=== PATIENT | male | born 1940 | race Caucasian/White ===

== ENCOUNTER → 2018-09-24 | Outpatient (CLI) | payer MEDICARE, BC ==
[~2018-09-24] MED LIST: AMIT25TA PO; ASPI-612 PO; BUSP10TA PO; CYAN200014 PO; LANS30CA PO; PSYL0.526 PO; TAMS0.4C2 PO
--- NOTE | 2018-09-24 16:58 | RAD ---
MRI Brain without contrast History: Dizziness, blurred vision for 8 months, hit head on car door, headaches Technique: Multiplanar, multisequential noncontrast MR imaging was performed of the brain. Contrast: None Comparison: None Findings: There is some motion degradation. There is no evidence of recent infarct or cytotoxic edema. Ventricular size is within normal limits. There is very mild prominence of the supratentorial subarachnoid spaces which may be due to very mild involutional change.There is no significant midline shift, intraaxial mass effect, or focal abnormal extra-axial fluid collection. There is minimal T2 and FLAIR hyperintense signal abnormality of the supratentorial white matter bilaterally. There is no significant hemosiderin deposition of the brain parenchyma. There is preservation of the major intracranial flow-voids at the skull base. The mastoid air cells are aerated. The cerebellar tonsils are normal in location. There is no significant abnormality of the pineal gland or pituitary gland. There is moderate to severe right maxillary sinus mucosal thickening, minimal bilateral ethmoid air cell mucosal thickening. There is a small anterior left maxillary sinus mucous retention cyst. There is preserved marrow signal of the clivus. There is degenerative disc disease and spondylosis of visualized cervical spine, at least mild if not moderate spinal stenosis of visualized cervical spine. Impression: 1. There is no evidence of recent infarct or intracranial mass effect. Nonspecific minimal T2 and FLAIR hyperintense signal of the supratentorial parenchyma may be due to chronic microvascular ischemic disease. There is very mild supratentorial involutional change. 2. There is moderate to severe right maxillary sinus mucosal thickening. 3. There is degenerative disc disease and spondylosis of visualized cervical spine, at least mild if not moderate spinal stenosis of visualized cervical spine. Electronically signed by: Bo Vang MD (09/24/2018 4:55 PM) [facility]
== END | disposition home or self-care (01) ==
LOC: MRI 15:33
PROVIDERS: ATTEND Internal Medicine
DX: G44.221 Chronic tension-type headache, intractable (principal); M50.30 Other cervical disc degeneration, unspecified cervical region; M47.892 Other spondylosis, cervical region
CPT/HCPCS: 70551

== ENCOUNTER → 2019-05-07 | Outpatient (CLI) | payer MEDICARE, BC ==
[~2019-05-07] MED LIST changes: +REGADENOSON 0.4 MG/5 ML DISP.SYRIN. IV ONE
--- NOTE | 2019-05-07 09:06 | CARD ---
MR#: [id number] Date of Study: 05/07/2019 Ordering Physician: MAURIZIO RODRIGUEZ, Referring Physician: MAURIZIO RODRIGUEZ, Tech: Sun Sherwood RDCS APPROVED REPORT EXAM: Two-dimensional and M-mode echocardiogram with Doppler and color Doppler. Other Information Quality : Good INDICATION Murmur 2D DIMENSIONS RVDd2.0 (2.9-3.5cm)Left Atrium(2D)3.3 (1.6-4.0cm) IVSd0.7 (0.7-1.1cm)Aortic Root(2D)3.1 (2.0-3.7cm) LVDd4.6 (3.9-5.9cm)LVOT Diameter2.2 (1.8-2.4cm) PWd0.8 (0.7-1.1cm)LVDs3.2 (2.5-4.0cm) FS (%) 30.0 %SV56.3 ml LVEF(%)55.0 (>50%) Aortic Valve AoV Peak Jose C.169.3cm/sAoV VTI40.0cm AO Peak GR.11.5mmHgLVOT Peak Jose C.85.2cm/s AO Mean GR.7mmHgAVA (VMAX)1.85cm2 GRACY (VTI)1.80cm2 Mitral Valve MV E Slnrlpgh38.0cm/sMV DECEL QMRW519ge MV A Mzlpbtbp485.4cm/sE/A Ratio0.8 Tricuspid Valve TR P. Ujexqrjc299pi/sRAP QPSOQMYF5vsIb TR Peak Gr.04qbVpGDGB42ixRg Pulmonary Vein S1 Icuxntsd03.9cm/sD2 Mukjhrwi35.8cm/s LEFT VENTRICLE The left ventricle is normal size. There is normal left ventricular wall thickness. Left ventricle sy stolic function is normal. The Ejection Fraction is 55%. There is normal LV segmental wall motion. Tr ansmitral Doppler flow pattern is Grade I-abnormal relaxation pattern. RIGHT VENTRICLE The right ventricle is normal size. The right ventricular systolic function is normal. ATRIA The left atrium size is normal. The right atrium size is normal. The interatrial septum is intact wit h no evidence for an atrial septal defect or patent foramen ovale as noted on 2-D or Doppler imaging. AORTIC VALVE Functionally bicuspid aortic valve. Doppler and Color Flow revealed trace aortic regurgitation. There is no significant aortic valvular stenosis. MITRAL VALVE The mitral valve is calcified but opens well. The anterior mitral valve leaflet is redundant without clear evidence of mitral valve prolapse. There is no mitral valve stenosis. Doppler and Color-flow re vealed trace mitral regurgitation. TRICUSPID VALVE The tricuspid valve is normal in structure and function. Doppler and Color Flow revealed trace tricus pid regurgitation. The PA pressure was estimated at 21 mmHg. There is no tricuspid valve stenosis. PULMONIC VALVE The pulmonic valve is not well visualized. Doppler and Color Flow revealed no pulmonic valvular regur gitation. There is no pulmonic valvular stenosis. GREAT VESSELS The aortic root is normal in size. The ascending aorta is mildly dilated at 3.6 cm. The IVC is normal in size and collapses >50% with inspiration. PERICARDIAL EFFUSION There is no evidence of significant pericardial effusion. Critical Notification Critical Value: No <Conclusion> Left ventricle systolic function is normal. The Ejection Fraction is 55%. There is normal LV segmental wall motion. Transmitral Doppler flow pattern is Grade I-abnormal relaxation pattern. Functionally bicuspid aortic valve without any stenosis and trace aortic regurgitation. Trace mitral regurgitation. Trace tricuspid regurgitation. The PA pressure was estimated at 21 mmHg. There is no evidence of significant pericardial effusion. Signed by : Felipe Cody, Electronically Approved : 05/07/2019 09:06:21
--- NOTE | 2019-05-07 11:51 | RAD ---
MR#: [id number] Date of Study: 05/07/2019 Ordering Physician: MAURIZIO RODRIGUEZ, Referring Physician: RAFAEL SALAS Tech: RT Emil (R) (N) APPROVED REPORT Test Type: Pharmacological Stress Nurse/Tech: Merlyn Molina RN Test Indications: CP Cardiac History: No known cardiac, borderline DB (no tx), stroke (unknown time) Medications: See Electronic Medical Record Medical History: See Electronic Medical Record Resting ECG: PVC, ST elevation on lead I, aVL, V2, V5, V6, Resting Heart Rate: 62 bpm Resting Blood Pressure: 129/62mmHg Pretest Chest Pain: NoneNo chest pain Nurse/Tech Notes S1,S2, Clear LS. Unstable gait Consent: The procedure was explained to the patient in lay terms. Informed consent was witnessed. Segun eout was entered into [employer]. History and Stress Test performed by Merlyn Molina RN Pharm. Details Pharmacologic stress testing was performed using 0.4mg per 5ml of regadenoson given intravenously ove r 7-10 seconds. Stress Symptoms Dyspnea, Flushing, Nausea(late stage) Nonanginal chest pain occurred (Severity , 1 min duration). POST EXERCISE Reason for Termination: Infusion complete Max HR: 103 bpm Max Blood Pressure: 127/63mmHg Chest Pain: Yes. chest tightness Angina index: 4 Arrhythmia: No. ST Change: No. INTERPRETATION Stress EKG Conclusion: Baseline EKG showed sinus rhythm. No ischemic changes at peak stress. No arr hythmias. Imaging Protocol IMAGE PROTOCOL: Rest Tc-99m/stress Tc-99m 1 day Rest: Stress: Viability: Radiopharm.Tc99m KulbaonxwCi10a Sestamibi Pnmp07cMn 32mCi Duration 13min. 13min. Img Date 05/07/2019 05/07/2019 Inj-Img Pkhs03ahy. 60min. Rest Admin Site:IV - Left ForearmAdministrator:RT Emil (R)(N) Stress Admin Site: IV - Left ForearmAdministrator: MIKE Higgins STRESS DATA End Diast. Vol.101.0mlLVEDV index BSA52.0ml End Syst. Vol.36.0mlLVESV index BSA18.0ml Myocardial Cjfj886.0gEject. Wqkhttnn81.0% Stress Scores Regional WT1.00Summed WT8.00 Regional WM0.00Summed WM7.00 Study quality was good. Left Ventricular size was Normal at Rest and Stress. Lung uptake was . Left Ventricular ejection fraction is 64%. The rest and stress images show normal perfusion, normal contraction and thickening. LV Perf. Quant 17 Seg. SSS1.00 17 Seg. SRS10.00 17 Seg. SDS0.00 Stress Defect Extent (% LAD)0.00Rest Defect Extent (% LAD)16.30Rev. Defect Extent (% LAD)0.00 Stress Defect Extent (% LCX) 0.00Rest Defect Extent (% LCX)22.50Rev. Defect Extent (% LCX)0.00 Stress Defect Extent (% RCA)0.00Rest Defect Extent (% RCA)15.60Rev. Defect Extent (% RCA)0.00 Stress Defect Extent (% CHIKA)0.00Rest Defect Extent (% CHIKA)16.70Rev. Defect Extent (% CHIKA)0.00 Conclusion 1. Regadenoson cardioisotope stress test did not show any evidence of ischemia or infarct. 2. Normal left ventricular systolic function with ejection fraction calculated at 64%. 3. Low risk for cardiac events. Signed by : Felipe Cody, Electronically Approved : 05/07/2019 11:51:11
== END ==
LOC: NM 06:46
PROVIDERS: ATTEND Internal Medicine Cardiovascular Disease
DX: I34.8 Other nonrheumatic mitral valve disorders (principal)
CPT/HCPCS: 78452; 93017; 93306; A9500; J2785

== ENCOUNTER → 2022-01-05 | Outpatient (CLI) | payer MEDICARE, BC ==
[2019-07-30 19:36] VITALS: BP 120/66
[~2022-01-05] MED LIST changes: -ASPI-612 PO; +ASPI-886 PO
[2022-01-05] MEDS: REGADENOSON 0.4 MG/5 ML DISP.SYRIN. IV ONE (08:30)
--- NOTE | 2022-01-05 15:03 | RAD ---
MR#: [id number] Date of Study: 01/05/2022 Ordering Physician: MAURIZIO VU, Referring Physician: RAFAEL SALAS Tech: MIKE Higgins APPROVED REPORT Test Type: Pharmacological Stress Nurse/Tech: Renea Snu R.N. Test Indications: CP Cardiac History: cad Medications: See Electronic Medical Record Medical History: See Electronic Medical Record Resting ECG: SR w/ 1st degree AV block, inverted T waves in leads AVL and V2, Resting Heart Rate: 83 bpm Resting Blood Pressure: 133/82mmHg Pretest Chest Pain: No chest pain Nurse/Tech Notes S1S2 w/ murmur, lungs CTA Consent: The procedure was explained to the patient in lay terms. Informed consent was witnessed. Segun eout was entered into [employer]. History and Stress Test performed by RT Toña (R) (N) Pharm. Details Pharmacologic stress testing was performed using 0.4mg per 5ml of regadenoson given intravenously ove r 7-10 seconds. Stress Symptoms SOA POST EXERCISE Reason for Termination: Infusion complete Max HR: 98 bpm Max Blood Pressure: 140/71mmHg Blood Pressure response to exercise: Normal blood pressure response during stress. Heart Rate response to exercise: wnl Chest Pain: No. Arrhythmia: Yes. had multiple pvc's noted INTERPRETATION Stress EKG Conclusion: The resting EKG shows a sinus rhythm with nonspecific ST-T wave changes. The stress EKG shows no significant changes from baseline. No EKG evidence of stress-induced ischemia. Imaging Protocol IMAGE PROTOCOL: Rest Tc-99m/stress Tc-99m 1 day Rest: Stress: Viability: Radiopharm.Tc99m MhokbimbhOo45m Sestamibi Cmbu74yRr 30mCi Duration 15min. 13min. Img Date 01/05/2022 01/05/2022 Inj-Img Jotz74sxz. 60min. Rest Admin Site:IV - Right AntecubitalAdministrator:RT Toña (R)(N) Stress Admin Site: IV - Right AntecubitalAdministrator: RT Toña (R)(N) STRESS DATA End Diast. Vol.90.0mlLVEDV index BSA47.0ml End Syst. Vol.36.0mlLVESV index BSA19.0ml Myocardial Ydwq074.0gEject. Rckiujiu62.0% Stress Scores Regional WT0.00Summed WT9.00 Regional WM0.00Summed WM4.00 LV Perfusion The stress images showed mild apical thinning. The rest images showed mild apical thinning. Nuclear imaging shows no reversible ischemia. Nuclear imaging shows fixed mild apical thinning most consistent with a technical artifact. Wall Motion Left ventricular systolic function is intact with an ejection fraction of 60%. LV Perf. Quant 17 Seg. SSS11.00 17 Seg. SRS15.00 17 Seg. SDS0.00 Stress Defect Extent (% LAD)35.00Rest Defect Extent (% LAD)40.60Rev. Defect Extent (% LAD)3.80 Stress Defect Extent (% LCX) 17.50Rest Defect Extent (% LCX)38.80Rev. Defect Extent (% LCX)0.00 Stress Defect Extent (% RCA)3.30Rest Defect Extent (% RCA)41.10Rev. Defect Extent (% RCA)0.00 Stress Defect Extent (% CHIKA)25.70Rest Defect Extent (% CHIKA)43.30Rev. Defect Extent (% CHIKA)1.30 Conclusion 1. No EKG evidence of stress-induced ischemia. 2. Nuclear imaging shows no reversible ischemia. 3. Nuclear imaging shows mild fixed thinning near the apex most consistent with a technical artifact. 4. Intact LV systolic function with an ejection fraction of 60%. 5. Moderately low risk Lexiscan nuclear stress test. Signed by : Maurizio Vu MD Electronically Approved : 01/05/2022 15:03:19
== END ==
LOC: NM 08:16
PROVIDERS: ATTEND Internal Medicine Cardiovascular Disease
DX: R07.9 Chest pain, unspecified (principal)
CPT/HCPCS: 78452; 93017; A9500; J2785